=== PATIENT | female | born 1970 | race American Indian/Alaskan Native ===

== ENCOUNTER 2017-04-29 09:37 | Emergency (ER) | payer BC ==
[2017-04-29 09:38] VITALS: BMI 40.8
[2017-04-29] MEDS ORDERED: Lidocaine 5% Patch TD STA (10:54)
[2017-04-29] MEDS ORDERED: Oxycodone/Acetaminophen 5/325 mg Tab PO STA (10:54)
--- NOTE | 2017-04-29 10:57 | C.PDOC ---
History Of Present Illness 47 year old female presents to the ED with complaints of lower back pain, worse in the right side, for three days. Patient notes pain is exacerbated by movement and has experienced similar complaints before. She states pain began after traveling and frequent sitting in an awkward and uncomfortable position. Patient has taken ibuprofen and protonix, prescribed by doctor, with no relief. She denies radiation of pain, dysuria, fever, nausea, vomiting, or abdominal pain. Chief Complaint (Nursing): Back Pain History Per: Patient History/Exam Limitations: no limitations Onset/Duration Of Symptoms: Days (3 days ) Quality Of Discomfort: "Pain" Previous Symptoms: Back Pain Associated Symptoms: None Exacerbating Factor(s): Movement Recent travel outside of the [place]: No Past Medical History Reviewed: Historical Data, Nursing Documentation, Vital Signs Vital Signs: Last Vital Signs Temp 98.6 F 04/29/17 12:22 Pulse 79 04/29/17 12:22 Resp 16 04/29/17 12:22 BP 168/88 H 04/29/17 12:22 Pulse Ox 98 04/29/17 12:22 - Medical History PMH: Family History: States: Unknown Family Hx - Social History Hx Alcohol Use: No Hx Substance Use: No - Immunization History Hx Tetanus Toxoid Vaccination: No Hx Influenza Vaccination: No Hx Pneumococcal Vaccination: No Review Of Systems Constitutional: Negative for: Fever, Chills Cardiovascular: Negative for: Chest Pain Respiratory: Negative for: Shortness of Breath Gastrointestinal: Negative for: Nausea, Vomiting, Abdominal Pain Genitourinary: Negative for: Dysuria Musculoskeletal: Positive for: Back Pain Neurological: Negative for: Weakness, Numbness Physical Exam - Physical Exam Appears: Non-toxic, No Acute Distress Skin: Warm, Dry Head: Atraumatic Eye(s): bilateral: Normal Inspection Oral Mucosa: Moist Neck: Supple Chest: Symmetrical, No Deformity Cardiovascular: Rhythm Regular Respiratory: Normal Breath Sounds, No Rales, No Rhonchi, No Wheezing Gastrointestinal/Abdominal: Soft, No Tenderness, No Distention, No Guarding, No Rebound Back: Paraspinal Tenderness (paravertebral tenderness, worse in the right. ) Extremity: Normal ROM, No Tenderness, Capillary Refill (good capillary refill, less than two seconds ) Neurological/Psych: Oriented x3, Normal Speech, Normal Cognition, Normal Motor, Normal Sensation, Other (No neurological deficits ) Gait: Steady ED Course And Treatment O2 Sat by Pulse Oximetry: 99 (room air ) - Other Rad LS X-Ray X-Ray: Viewed By Me, Read By Radiologist Interpretation: HISTORY: low back pain. COMPARISON: No prior. FINDINGS: BONES: Normal alignment. No listhesis. No fracture. 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 OTHER FINDINGS : Lumbarized S1. IMPRESSION: No fracture or spondylolisthesis identified. 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 Progress Note: LS X-Ray was ordered and patient was given Lidoderm, Toradol, Valium, and Percocet. on re-evaluation, patient states she feels better and is ambulatory. She denies any neurological deficits. Disposition - Disposition Disposition: HOME/ ROUTINE Disposition Time: 12:15 Condition: STABLE Additional Instructions: Follow up with your PMD within 1-2 days. Return to ED if feel worse. Prescriptions: Lidocaine 5% 1 appl TP QID #70 g traMADol [Ultram] 50 mg PO Q6 #20 tab diaZEpam [Valium] 2 mg PO TID #15 tab Instructions: Acute Low Back Pain (ED) Forms: [facility] (Turkmen) - Clinical Impression Clinical Impression: Low back pain - Scribe Statement The provider has reviewed the documentation as recorded by the Scribrahel Bernard All medical record entries made by the Scribe were at my direction and personally dictated by me. I have reviewed the chart and agree that the record accurately reflects my personal performance of the history, physical exam, medical decision making, and the department course for this patient. I have also personally directed, reviewed, and agree with the discharge instructions and disposition.
[2017-04-29] MEDS ORDERED: Lidocaine 5% Patch TD ONE (11:11)
[2017-04-29] MEDS ORDERED: Oxycodone/Acetaminophen 5/325 mg Tab ONE (11:12)
[2017-04-29 11:23] LABS: RBC URINE < 1 /hpf (0-3); URINE BACTERIA MOD (<OCC); URINE BILIRUBIN NEGATIVE (NEGATIVE); URINE BLOOD NEGATIVE (NEGATIVE); URINE COLOR Yellow (YELLOW); URINE GLUCOSE (UA) NORMAL (Normal); URINE KETONE NEGATIVE (NEGATIVE); URINE LEUKOCYTE ESTERASE NEG Leu/uL (Negative); URINE PROTEIN NEGATIVE (NEGATIVE); URINE UROBILINOGEN NORMAL mg/dL (0.2-1.0); WBC URINE 2 /hpf (0-5)
[2017-04-29 12:23] VITALS: BP 168/88; PULSE 79; RESP 16; TEMP 98.6
--- NOTE | 2017-04-29 12:49 | RAD ---
PROCEDURE: Radiographs of the Lumbar Spine. HISTORY: low back pain COMPARISON: No prior. FINDINGS: BONES: Normal alignment. No listhesis. No fracture. 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 OTHER FINDINGS: Lumbarized S1. IMPRESSION: No fracture or spondylolisthesis identified. 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
[2017-04-29 13:43] VITALS: O2SAT 99
== END 2017-04-29 12:22 | disposition home or self-care (01) ==
LOC: C.ER 09:37
DX: M54.5 Low back pain (principal)
CPT/HCPCS: 72100; 81001; 96372; 99284; J1885